=== PATIENT | male | born 1970 | race African-American/Black ===

== ENCOUNTER 2017-10-14 14:40 | Emergency (ER) | payer OTHER ==
[2017-10-14] MEDS: IBUPROFEN 600 MG TAB PO (15:36)
[2017-10-14] MEDS: predniSONE 20 MG TAB PO (15:36)
== END 2017-10-14 15:56 | disposition home or self-care (01) ==
LOC: FTE 15:56
DX: S60.462A Insect bite (nonvenomous) of right middle finger, initial encounter (principal); M79.89 Other specified soft tissue disorders; I10 Essential (primary) hypertension; W57.XXXA Bitten or stung by nonvenomous insect and other nonvenomous arthropods, initial encounter; Y92.009 Unspecified place in unspecified non-institutional (private) residence as the place of occurrence of the external cause
CPT/HCPCS: 99284; J7512

== ENCOUNTER 2017-12-19 16:30 | Emergency (ER) | payer SELFPAY, OTHER | END 2017-12-19 19:01 | disposition left against medical advice (07) | LOC: E/R 16:30 | DX: Z53.21 Procedure and treatment not carried out due to patient leaving prior to being seen by health care provider (principal) | CPT/HCPCS: 93005 ==

== ENCOUNTER 2018-11-03 11:36 | Emergency (ER) | payer SELFPAY, OTHER | END 2018-11-03 15:08 | disposition left against medical advice (07) | LOC: E/R 11:36 | DX: Z53.21 Procedure and treatment not carried out due to patient leaving prior to being seen by health care provider (principal) | CPT/HCPCS: 93005 ==